=== PATIENT | female | born 1955 | race Caucasian/White ===

== ENCOUNTER 2016-10-04 19:55 | Emergency (ER) | payer MEDICARE ==
[~2016-10-04 19:55] MED LIST: ALBUTEROL INH; ALBUTEROL MININEB NEB; ALBUTEROL17 GM INH; COMBIVENT14.7 GM INH; CRESTOR PO; CRESTOR10 MG PO; DESYREL300 MG PO; FLAGYL PO; FLEXERIL10 MG PO; FLUOXETINE HCL40 MG PO; HYDROCODON-ACE1 EAC7 PO; HYDROCODONE-APA1 T56 PO; HYDROCODONE-APA1 T58 PO; KLONOPIN1 MG PO; LEVOTHYROXINE175 MCG PO; LEVOXYL175 MCG PO; LORTAB 7.5-3251 EACH PO; LYRICA225 MG PO; LYRICA300 MG PO; NAPROXEN PO; NORVASC10 MG PO; OMNICEF300 M1 PO; OXYGEN; PANTOPRAZOLE SO40 MG PO; PHENERGAN25 MG PO; PREDNISONE10 MG/DOSE PO; SEROQUEL50 MG PO; SYMBICORT INH; SYNTHROID0.05 MG PO; SYNTHROID175 MCG PO; TRAZODONE HCL300 MG PO; VIBRAMYCIN100 M1 PO
== END 2016-10-04 20:00 | disposition left against medical advice (07) ==
LOC: CED 19:55
DX: Z53.21 Procedure and treatment not carried out due to patient leaving prior to being seen by health care provider (principal)

== ENCOUNTER 2017-03-10 16:10 | Emergency (ER) | payer MEDICARE ==
--- NOTE | ~2017-03-10 | CR72 ---
[facility] A Service of [facility] & [facility] / [facility] RADIOLOGY TEXT RESULTS PATIENT: MIKE SUMNER LOCATION: [facility] : 59 UNIT #: [id number] AGE: [address]: Jong Mccormick MD SEX: F ORDER DR: [id number] [facility] [address] [place], [place] [address] [id number] MR#: [id number] #: [id number] NAME: MIKE SUMNER : 1955 SEX: F STUDY DATE/TIME: 03/10/2017 20:36 UNIT: [facility] ROOM: STUDY DESCRIPTION: CR Chest Single View Portable Attending Physician: Jong Mccormick M.D. Ordering Physician: Jong Mccormick M.D. Primary Care Physician: Salvador Joshi M.D. MEDICAL IMAGING REPORT This report is preliminary unless electronic signature is present EXAM Chest portable, 03/10/2017, 2036 hours. CLINICAL HISTORY 61-year-old with 2-day history of congestion, cough, dizziness and sensation of dehydration. COMPARISON 05/30/2016 FINDINGS Two upright chest films are slightly rotated. Heart size is at the upper limits of normal. Aortic contours are normal. Lungs are hyperinflated with likely underlying emphysematous change. There is vague density at the left base, which could represent atelectasis or pneumonia. Left upper lung is remarkable for a nodule in the mid lung region measuring up to 2.4 cm. This density has been present on prior CTs dating back to 11/20/2012 where it measured 1.4 x 1.4 cm. The current size appears increased. Consider followup chest CT. IMPRESSION 1. Pulmonary hyperinflation with vague patchy density at the left lung base, which could represent atelectasis or pneumonia. The right lung is clear. 2. There is an ovoid nodule in the left midlung measuring up to 2.4 cm. Patient has had a nodule on prior CT scans in this area dating back to 2012 where it measured 1.4 x 1.4 cm. This suggests interval growth. Consider followup chest CT to reassess left upper lobe nodule. Dictated by... Rahel Lima M.D. [facility] A Service of [facility] & [facility] / [facility] RADIOLOGY TEXT RESULTS PATIENT: MIKE SUMNER [id number] : 59 UNIT #: [id number] AGE: [address]: Jong Mccormick MD SEX: F ORDER DR: THIS IS AN ELECTRONICALLY VERIFIED REPORT Rahel Lima M.D. at 03/12/2017 9:03 AM [place] TD: 03/12/2017 07:46 JOB #: [id number] MEDICAL IMAGING REPORT Page 1 of 1 COPY
--- NOTE | ~2017-03-10 | EKG ---
PATIENT: MIKE SUMNER UNIT #: [id number] Ventricular Rate: 85 BPM Atrial Rate: 85 BPM P-R Interval: 144 ms QRS Duration: 78 ms Q-T Interval: 400 ms QTC Calculation(Bezet): 476 ms P [place]: 78 degrees Calculated R [place]: 66 degrees Calculated T [place]: -12 degrees Diagnosis Line: Normal sinus rhythm Diagnosis Line: Nonspecific T wave abnormality Diagnosis Line: Abnormal ECG Diagnosis Line: When compared with ECG of 28-MAY-2016 00:44, Diagnosis Line: Nonspecific T wave abnormality now evident in Diagnosis Line: Inferior leads Diagnosis Line: Nonspecific T wave abnormality now evident in Diagnosis Line: Anterolateral leads Diagnosis Line: Confirmed by ZEE SEGURA MD ([id number]) on 03/11/2017 Diagnosis Line: 11:05:34 PM INTERPRETING MD: COLTON BAUTISTA
[2017-03-10 17:19] LABS: BASOPHIL# 0.1 X10e3 (0-0.3); BASOPHIL% 0.7 % (0-2.5); EOSINOPHIL# 0.3 X10e3 (0-0.7); EOSINOPHIL% 3.5 % (0.0-7.0); HEMATOCRIT 44.7 % (35.0-45.0); HEMOGLOBIN 15.1 gm/dL (12.0-16.0); LYMPHOCYTE# 1.7 X10e3 (1.0-3.5); LYMPHOCYTE% 22.6 % (17.0-45.0); MEAN CELL VOLUME 87.5 FL (83-96); MEAN CORPUSCULAR HEMOGLOBIN 29.5 PG (28-34); MEAN CORPUSCULAR HGB CONC 33.7 g/dL (30-36); MEAN PLATELET VOLUME 7.8 FL (6.5-11.5); MONOCYTE# 0.8 X10e3 (0-1.0); NEUTROPHIL# 4.8 X10e3 (1.5-7.1); NEUTROPHIL% 63.2 % (40-75); PLATELET COUNT 235 X10e3 (140-420); RED CELL DISTRIBUTION WIDTH 14.2 % (11.0-15.5); WHITE BLOOD COUNT 7.5 X10e3 (4.0-10.5)
[2017-03-10 17:21] LABS: DIFF IND NO
[2017-03-10 17:39] LABS: ALBUMIN SERUM 4.3 g/dL (3.5-5.0); BILIRUBIN, DIRECT 0.1 mg/dL (0.0-0.2); BILIRUBIN,INDIRECT 0.6 mg/dL (0.0-0.9); BILIRUBIN,TOTAL 0.7 mg/dL (0.2-2.0); BUN/CREATININE RATIO 10.83; CALCIUM SERUM 9.6 mg/dL (8.4-10.2); CREATININE SERUM 1.2 mg/dL (0.6-1.4); GLOM FILT RATE Estimated 49.4 mL/min (>60); POTASSIUM 3.6 mmol/L (3.5-5.1); PROTEIN TOTAL SERUM 8.1 g/dL (6.0-8.3)
[2017-03-10 18:18] LABS: POC - CKMB <1.0 ng/mL (0.0-7.9); POC - TROPONIN <0.05 ng/mL (<=0.05)
[2017-03-10 19:57] LABS: POC - CKMB 1.6 ng/mL (0.0-7.9); POC - TROPONIN <0.05 ng/mL (<=0.05)
[2017-03-10 21:30] LABS: URINE SOURCE CLEAN CATCH
[2017-03-10 21:36] LABS: URINE APPEARANCE CLEAR; URINE BLOOD NEG (NEG); URINE COLOR DK YELLOW; URINE GLUCOSE NEG (NEG); URINE KETONE TRACE (NEG); URINE LEUKOCYTE ESTERASE TRACE (NEG); URINE NITRATE POS (NEG); URINE PH 5.5 (5-8); URINE PROTEIN 1+ (NEG); URINE SPECIFIC GRAVITY 1.034 (1.003-1.035)
[2017-03-10 21:39] LABS: CULTURE INDICATED? YES; URINE BACTERIA AUWI 3+ (NEGATIVE); URINE SQUAMOUS EPITHELIAL CELL NONE SEEN /[HPF]; UWBCS1 AUWI 25-50 (0-5)
[2017-03-10 21:52] LABS: U HYALINE CASTS AUWI 0-2 /[LPF]; URINE BILIRUBIN NEG (NEG)
== END 2017-03-10 22:05 | disposition home or self-care (01) ==
LOC: CED 16:10
DX: R42 Dizziness and giddiness (principal); J01.90 Acute sinusitis, unspecified; F41.9 Anxiety disorder, unspecified; F17.200 Nicotine dependence, unspecified, uncomplicated; Z79.899 Other long term (current) drug therapy
CPT/HCPCS: 36415; 71010; 80048; 80076; 81003; 82553; 84484; 85025; 87086; 87088; 87186; 93005; 94640; 99284